=== PATIENT | female | born 1975 | race Caucasian/White ===

== ENCOUNTER 2020-04-07 10:20 | Day surgery (SDC) | payer MEDICAID, SELFPAY ==
[~2020-04-07] VITALS: Ht 182.9 cm; Wt 115.2 kg
[2020-04-07] MEDS ORDERED: PROPOFOL 200MG/ 20ML VIAL (DIPRIVAN) IV ONE (12:30)
[2020-04-07] MEDS ORDERED: fentaNYL CITRATE/PF 100 MCG/2 ML AMP IVP ONE (12:30)
[2020-04-07] MEDS ORDERED: SEVOFLURANE 15 MIN GAS INH ONE (12:30)
[2020-04-07] MEDS ORDERED: MIDAZOLAM HCL 5 MG/5 ML VIAL IVP ONE (12:30)
[2020-04-07] MEDS ORDERED: NS 1000 ML IV.SOLN IV ONE (12:30)
[2020-04-07] MEDS ORDERED: fentaNYL CITRATE/PF 100 MCG/2 ML AMP IVP PRN ×2 (13:15)
[2020-04-07] MEDS ORDERED: ONDANSETRON HCL 4 MG/2 ML VIAL IVP PRN (13:15)
[2020-04-07] MEDS ORDERED: fentaNYL CITRATE/PF 100 MCG/2 ML AMP ONE (14:04)
[2020-04-07 14:30] VITALS: BP_SYST 117
== END 2020-04-07 15:10 | disposition home or self-care (01) ==
LOC: SDS 10:20 → SMU 10:20 → SDS 15:10
PROVIDERS: ATTEND Obstetrics & Gynecology
DX: N92.0 Excessive and frequent menstruation with regular cycle (principal); D25.0 Submucous leiomyoma of uterus
CPT/HCPCS: 58563; J2250; J2704; J3010; J7030; J7120; U0002